=== PATIENT | male | born 1995 | race Hispanic/Latino ===

== ENCOUNTER 2017-08-01 14:44 | Emergency (ER) | payer MEDICAID, OTHER ==
[2017-08-01] MEDS ORDERED: AZITHROMYCIN 250 MG TABLET PO ONE (15:22)
[2017-08-01] MEDS ORDERED: LIDOCAINE HCL-MPF 1% 2ML VIAL ONE (15:22)
[2017-08-01] MEDS ORDERED: CEFTRIAXONE SODIUM 500 MG VIAL ONE (15:22)
[2017-08-01] MEDS ORDERED: ONDANSETRON ODT 4 MG TAB ONE (15:23)
[2017-08-01 15:26] LABS: APPEARANCE,URINE Cloudy (CLEAR); BILIRUBIN,URINE Moderate (NEGATIVE); COLOR,URINE Orange (YELLOW); GLUCOSE, URINE (UA) Negative (NEGATIVE); KETONES,URINE 15 mg/dL (NEGATIVE); LEUKOCYTE ESTERASE ,URINE Large (NEGATIVE); NITRATE,URINE Positive (NEGATIVE); OCCULT BLOOD,URINE Small (NEGATIVE); PROTEIN,URINE POS 2+ (NEGATIVE)
[2017-08-01 15:34] LABS: BACTERIA,URINE Few /HPF (None Seen); SQUAMOUS EPITHELIAL CELL,UR 0-2 /HPF (0-2); WBC,URINE >100 /HPF (0-1)
== END 2017-08-01 16:01 | disposition home or self-care (01) ==
LOC: EDH 14:44
DX: N34.2 Other urethritis (principal)
CPT/HCPCS: 81001; 87486; 87797; 96372; 99284; J0696; J3490

== ENCOUNTER 2023-05-19 09:10 | Emergency (ER) | payer OTHER, SELFPAY ==
[~2023-05-19] VITALS: Ht 175.3 cm; Wt 52.2 kg
[2023-05-19 09:47] VITALS: BP 135/79; PULSE 65; RESP 18; O2SAT 98
[2023-05-19 09:57] LABS: APPEARANCE,URINE CLEAR (CLEAR); BILIRUBIN,URINE NEGATIVE (NEGATIVE); COLOR,URINE YELLOW (YELLOW); GLUCOSE, URINE (UA) NEGATIVE (NEGATIVE); KETONES,URINE 40 mg/dL (NEGATIVE); LEUKOCYTE ESTERASE ,URINE NEGATIVE Leu/uL (NEGATIVE); NITRATE,URINE NEGATIVE (NEGATIVE); OCCULT BLOOD,URINE SMALL (NEGATIVE); PROTEIN,URINE 100 mg/dL (NEGATIVE); UROBILINOGEN,URINE 0.2 mg/dL (0.2-1.0)
[2023-05-19 09:59] LABS: ADD UA MICROSCOPIC YES
[2023-05-19 10:03] LABS: MUCUS,URINE RARE LPF (None Seen)
[2023-05-19] MEDS ORDERED: DOXY-469 PO (10:11)
[2023-05-19] MEDS: DOXYCYCLINE HYCLATE 100 MG TABLET PO SCH (10:28)
[2023-05-19] MEDS: CEFTRIAXONE 500MG VIAL IM SCH (10:28)
== END 2023-05-19 10:28 | disposition home or self-care (01) ==
LOC: EDH 09:10
DX: N34.2 Other urethritis (principal); A64 Unspecified sexually transmitted disease
CPT/HCPCS: 99283; 87088; 87797; 87486; 81001; 96372; J0696

== ENCOUNTER 2023-07-09 12:01 | Emergency (ER) | payer OTHER ==
[~2023-07-09] VITALS: Ht 175.3 cm; Wt 52.2 kg
[~2023-07-09 12:01] MED LIST: DOXY-469 PO
[2023-07-09 12:33] VITALS: BP 142/74; PULSE 65; RESP 18
== END 2023-07-09 15:02 | disposition left against medical advice (07) ==
LOC: EDH 12:01
DX: A56.8 Sexually transmitted chlamydial infection of other sites (principal)
CPT/HCPCS: 99281